=== PATIENT | male | born 1975 | race Caucasian/White ===

== ENCOUNTER 2016-11-05 04:54 | Outpatient (CLI) | payer SELFPAY | END 2016-11-05 04:55 | disposition critical access hospital (66) | DX: R10.9 Unspecified abdominal pain (principal) | CPT/HCPCS: A0425; A0429 ==

== ENCOUNTER 2016-11-05 05:01 | Emergency (ER) | payer SELFPAY ==
[2016-11-05] MEDS ORDERED: ONDANSETRON 4 MG/2 ML VIAL ONE (05:12)
[2016-11-05] MEDS ORDERED: KETOROLAC 30 MG/ML VIAL ONE (05:12)
[2016-11-05] MEDS: KETOROLAC 60 MG/2 ML VIAL IVP STA (05:20)
[2016-11-05] MEDS: ONDANSETRON 4 MG/2 ML VIAL IVP STA (05:21)
[2016-11-05] MEDS: SODIUM CHLORIDE 0.9% 1,000 ML IV STA (05:21)
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
[2016-11-05] MEDS ORDERED: HYDROmorphone 1 MG/ML SYRINGE ONE (05:36)
[2016-11-05] MEDS: HYDROmorphone 1 MG/ML SYRINGE IVP STA (05:39)
[2016-11-05 05:44] LABS: BASOPHILS % (AUTO) 1.1 %; EOSINOPHILS % (AUTO) 1.2 %; HCT - HEMATOCRIT 34.7 % (42.0-52.0); HGB - HEMOGLOBIN 11.4 g/dL (14.0-18.0); LYMPHOCYTES # (AUTO) 1.6 10^3/uL (1.5-3.5); LYMPHOCYTES % (AUTO) 36.8 %; MEAN CORPUSCULAR HEMOGLOBIN 26.1 pg (27.0-31.0); MEAN CORPUSCULAR HGB CONC 32.8 g/dL (32.0-36.0); MEAN CORPUSCULAR VOLUME 79.8 fL (80.0-94.0); MEAN PLATELET VOLUME 6.4 fL (7.4-11.4); MONOCYTES # (AUTO) 0.6 10^3/uL (0.0-1.0); MONOCYTES % (AUTO) 14.5 %; NEUTROPHILS % (AUTO) 46.4 %; RED BLOOD COUNT 4.35 10^6/uL (4.70-6.10); RED CELL DISTRIBUTION WIDTH 15.8 % (12.0-15.0); UNCORRECTED WHITE BLOOD COUNT 4.2 x10^3/uL; WHITE BLOOD COUNT 4.2 x10^3/uL (4.8-10.8)
[2016-11-05 05:52] LABS: ALBUMIN/GLOBULIN RATIO 1.4 (1.0-2.2); BILIRUBIN,TOTAL 0.8 mg/dL (0.2-1.0); POTASSIUM 3.6 mmol/L (3.5-5.0); TOTAL PROTEIN 7.7 g/dL (6.7-8.2)
[2016-11-05 06:10] LABS: BILIRUBIN,URINE NEGATIVE (NEGATIVE)
[2016-11-05 06:12] LABS: UA w/ MICROSCOPIC CHARGE YES
[2016-11-05 06:28] LABS: UR CULTURE IF IND INDICATED
--- NOTE | 2016-11-05 06:52 | CT Preliminary Report ---
Exam: CT Abdomen/Pelvis W/O IMPRESSION: 1. Nonobstructing stones in both kidneys. 2. Cortical scarring in both kidneys. 3. No ureteral stone or obstructive uropathy seen bilaterally. 4. Moderate stool in the colon with a large amount in the rectum. 5. Disk protrusion at L4-L5. [facility] SITE ID: [id number]
[2016-11-05 06:53] VITALS: BP 151/104
--- NOTE | 2016-11-05 06:54 | CT Report ---
EXAM: CT ABDOMEN AND PELVIS (CT KUB) EXAM DATE: 11/05/2016 06:35 AM. CLINICAL HISTORY: Left flank pain. COMPARISONS: None. TECHNIQUE: Routine axial helical CT imaging was performed through the abdomen and pelvis without IV c ontrast. Reconstructions: Coronal and sagittal. In accordance with CT protocol optimization, one or more of the following dose reduction techniques w ere utilized for this exam: automated exposure control, adjustment of mA and/or KV based on patient s ize, or use of iterative reconstructive technique. FINDINGS: Lung Bases: Normal. Right Kidney/Ureter: Cortical scarring in the kidney. At least 4 or 5 nonobstructing renal stones are seen measuring up to 5 x 4 mm. No ureteral stone or obstructive uropathy identified. Left Kidney/Ureter: Cortical scarring in the kidney. At least 2 nonobstructing renal stones are seen measuring up to 3 x 2 mm. No ureteral stone or obstructive uropathy identified. Other Solid Organs: Noncontrast images of the solid organs are grossly unremarkable. Gallbladder/Bile Ducts: Unremarkable. Peritoneal Cavity: No free fluid, free air or izabel adenopathy. Moderate stool in the colon with a la rge amount in the rectum. Bowel is otherwise grossly unremarkable. Appendix appears normal. Pelvic Organs: No bladder stones or wall thickening. Noncontrast images of the visualized pelvic orga ns are unremarkable. Vasculature: Unremarkable. Other: Disk protrusion at L4-L5. IMPRESSION: 1. Nonobstructing stones in both kidneys. 2. Cortical scarring in both kidneys. 3. No ureteral stone or obstructive uropathy seen bilaterally. 4. Moderate stool in the colon with a large amount in the rectum. 5. Disk protrusion at L4-L5. [facility] Referring Provider Line: [phone] SITE ID: [id number]
[2016-11-05] MEDS ORDERED: HYDROcod/ACETAM 5/325 MG TABLET ONE (07:20)
[2016-11-05] MEDS ORDERED: CIPROFLOXACIN 250 MG TABLET PO ONE (07:21)
[2016-11-05] MEDS: HYDROcod/ACETAM 5/325 MG TABLET PO STA (07:23)
[2016-11-05] MEDS: CIPROFLOXACIN 250 MG TABLET PO STA (07:23)
== END 2016-11-05 07:28 | disposition home or self-care (01) ==
LOC: ED 05:01
DX: R10.9 Unspecified abdominal pain (principal); Z88.0 Allergy status to penicillin
CPT/HCPCS: 36415; 74176; 80053; 81001; 81003; 83690; 85025; 87086; 96374; 96375; 99283; 99284